=== PATIENT | female | born 1935 ===

== ENCOUNTER 2019-04-10 12:02 | Emergency (ER) | payer OTHER ==
[~2019-04-10] VITALS: Ht 157.5 cm; Wt 112.5 kg
[~2019-04-10 12:02] MED LIST: CRESTOR20 MG PO; METHYLPREDNISOLO4 MG; NEURONTIN600 MG PO; ORPH100T; PLAVIX75 MG PO; [UNRECOGNIZED DRUG - OTHER]
[2019-04-10] MEDS ORDERED: XARELTO2.5 MG (12:52)
[2019-04-10] MEDS ORDERED: GLYBURIDE5 MG (12:54)
== END 2019-04-10 17:32 | disposition home or self-care (01) ==
LOC: ER 12:02
DX: L03.115 Cellulitis of right lower limb (principal); L29.8 Other pruritus; T36.8X5A Adverse effect of other systemic antibiotics, initial encounter; Y92.238 Other place in hospital as the place of occurrence of the external cause

== ENCOUNTER 2019-06-25 08:29 | Emergency (ER) | payer OTHER ==
[~2019-06-25] VITALS: Ht 160 cm; Wt 96.2 kg
[~2019-06-25 08:29] MED LIST changes: +GLYBURIDE5 MG; +XARELTO2.5 MG
[2019-06-25] MEDS ORDERED: DOXYCYCLINE HY100 M2 PO (15:41)
[2019-06-25] MEDS ORDERED: ULTRACET PO (15:42)
== END 2019-06-25 15:55 | disposition home or self-care (01) ==
LOC: ER 08:29
DX: L03.115 Cellulitis of right lower limb (principal); I87.2 Venous insufficiency (chronic) (peripheral); I82.491 Acute embolism and thrombosis of other specified deep vein of right lower extremity

== ENCOUNTER 2019-11-09 12:13 | Emergency (ER) | payer OTHER ==
[~2019-11-09] VITALS: Ht 160 cm; Wt 96.2 kg
[~2019-11-09 12:13] MED LIST changes: +DOXYCYCLINE HY100 M2 PO; +ULTRACET PO
== END 2019-11-09 14:46 | disposition home or self-care (01) ==
LOC: ER 12:13
DX: M54.5 Low back pain (principal)